=== PATIENT | female | born 1975 ===

== ENCOUNTER 2016-09-29 09:00 | Emergency (ER) | payer OTHER ==
[2016-09-29 09:09] VITALS: BMI 25.1
[2016-09-29 09:11] VITALS: RESP 18; TEMP 98.7; O2SAT 100
[2016-09-29] MEDS ORDERED: DiphenhydrAMINE 50 mg/ml Inj IVP STA (09:32)
[2016-09-29] MEDS ORDERED: Sodium Chloride 0.9% 1,000 ML IV STA (09:32)
--- NOTE | 2016-09-29 09:45 | ED PDOC ---
Arrival/HPI - General Chief Complaint: Headache Time Seen by Provider: 09/29/16 09:07 Historian: Patient, Family - History of Present Illness Narrative History of Present Illness (Text): 09/29/16 09:30 This 41 yo female with a recent Dx. lupus, who has an appointment to see [facility] next month, presents to to this ED c/o BACA, fatige, arthralgia, myalgias x 2 days. BACA is worse today. Patient has not started on Lupus medication yet. Patient denies recent travel, fever, sob, cp, abdominal pain, diplopia, dysarthria, dizziness, or abnormal gait. Time/Duration: Other (2 days) Context: Home Past Medical History - Provider Review Nursing Documentation Reviewed: Yes - Infectious Disease Hx of Infectious Diseases: None - Pulmonary Hx Respiratory Disorders: Yes Hx Asthma: Yes - Neurological Hx Neurological Disorder: No - Endocrine/Metabolic Hx Endocrine Disorders: Yes Hx Systemic Lupus Erythematosus: Yes - Psychiatric Hx Substance Use: No - Anesthesia Hx Anesthesia: No Hx Anesthesia Reactions: No Family/Social History - Physician Review Nursing Documentation Reviewed: Yes Family/Social History: No Known Family HX Smoking Status: Current Some Days Smoker Hx Alcohol Use: Yes Frequency of alcohol use: Socially Hx Substance Use: No Allergies/Home Meds Allergies/Adverse Reactions: Allergies No Known Allergies Allergy (Verified 09/29/16 09:09) Home Medications: Home Meds Medication Instructions Recorded Confirmed Albuterol HFA [Ventolin HFA 90 1 puff IH PRN PRN 09/29/16 09/29/16 mcg/actuation (8 g)] Review of Systems - Review of Systems Constitutional: Fatigue. absent: Weight Change, Fevers, Night Sweats Eyes: Normal ENT: Normal. absent: Sore Throat, Rhinorrhea Respiratory: Normal. absent: SOB, Cough, Sputum Cardiovascular: Normal. absent: Chest Pain, Palpitations Gastrointestinal: Normal. absent: Abdominal Pain, Nausea, Vomiting Genitourinary Female: Normal. absent: Dysuria, Frequency, Hematuria, Vaginal Bleeding, Vaginal Discharge Musculoskeletal: Arthralgias, Myalgias Skin: Normal. absent: Rash Neurological: Headache. absent: Dizziness, Focal Weakness, Speech Changes, Facial Droop, Disequilibrium, Seizure Endocrine: Normal Hemo/Lymphatic: Normal Psychiatric: Normal Physical Exam Vital Signs Temp Pulse Resp BP Pulse Ox 09/29/16 11:01 79 18 125/79 100 05/17/17 09:10 98.7 F 82 18 129/87 100 Temperature: Afebrile Blood Pressure: Normal Pulse: Regular Respiratory Rate: Normal Appearance: Positive for: Well-Appearing, Non-Toxic, Comfortable Pain Distress: None Mental Status: Positive for: Alert and Oriented X 3 - Systems Exam Head: Present: Atraumatic, Normocephalic Pupils: Present: PERRL Extroacular Muscles: Present: EOMI Conjunctiva: Present: Normal Mouth: Present: Moist Mucous Membranes Neck: Present: Normal Range of Motion Respiratory/Chest: Present: Clear to Auscultation, Good Air Exchange. No: Respiratory Distress, Accessory Muscle Use Cardiovascular: Present: Regular Rate and Rhythm, Normal S1, S2. No: Murmurs Abdomen: Present: Normal Bowel Sounds. No: Tenderness, Distention, Peritoneal Signs Back: Present: Normal Inspection Upper Extremity: Present: Normal Inspection. No: Cyanosis, Edema Lower Extremity: Present: Normal Inspection. No: Edema Neurological: Present: GCS=15, CN II-XII Intact, Speech Normal, Motor Func Grossly Intact, Normal Sensory Function, Normal Cerebellar Funct, Gait Normal, Memory Normal Skin: Present: Warm, Dry, Normal Color. No: Rashes Psychiatric: Present: Alert, Oriented x 3, Normal Insight, Normal Concentration Medical Decision Making ED Course and Treatment: 09/29/16 11:52 Father called her private [facility], and Neurologist to get a earlier appointment. Patient is sleeping comfortably. pain has improved. Labs were reviewed with patient and father. Patient woke up and she stated she feel better and she wishes to be discharge home soon. Re-evaluation Time: 11:54 Reassessment Condition: Re-examined, Improved - Lab Interpretations Lab Results: 09/29/16 09:49 09/29/16 09:49 Lab Results 09/29/16 10:15: Urine Color Yellow, Urine Appearance Clear, Urine pH 7.0, Ur Specific [place] 1.010, Urine Protein Negative, Urine Glucose (UA) Negative, Urine Ketones Negative, Urine Blood Negative, Urine Nitrate Negative, Urine Bilirubin Negative, Urine Urobilinogen 0.2, Ur Leukocyte Esterase Negative 09/29/16 09:49: Beta HCG, Quant < 2.39 09/29/16 09:49: Sodium 136, Potassium 4.0, Chloride 105, Carbon Dioxide 19 L, Anion Gap 16, BUN 12, Creatinine 0.8, Est GFR ( Amer) > 60, Est GFR (Non- Af Amer) > 60, Random Glucose 88, Calcium 9.7, Total Bilirubin 1.3, AST 21, ALT 22, Alkaline Phosphatase 49, Total Protein 7.6, Albumin 4.4, Globulin 3.3, Albumin/Globulin Ratio 1.3 09/29/16 09:49: WBC 5.3, RBC 4.24, Hgb 13.1, Hct 37.6, MCV 88.7, MCH 30.9, MCHC 34.8, RDW 12.6, Plt Count 227, MPV 10.6, Gran % 64.6, Lymph % (Auto) 27.7, Jones % (Auto) 6.2 H, Eos % (Auto) 1.1 L, Baso % (Auto) 0.4, Gran # 3.42, Lymph # 1.5 , Jones # 0.3, Eos # 0.1, Baso # 0.02 I have reviewed the lab results: Yes Interpretation: No clinic. lab abnormalty - Medication Orders Current Medication Orders: Discontinued Medications Diphenhydramine HCl (Benadryl) 25 mg IVP STAT STA Stop: 09/29/16 09:33 Last Admin: 09/29/16 10:11 Dose: 25 mg Comments: waited on hcg Sodium Chloride (Sodium Chloride 0.9%) 1,000 mls @ 999 mls/hr IV .Q1H1M STA Stop: 09/29/16 10:32 Last Admin: 09/29/16 09:37 Dose: 999 mls/hr Ketorolac Tromethamine (Toradol) 30 mg IVP STAT STA Stop: 09/29/16 09:33 Last Admin: 09/29/16 10:10 Dose: 30 mg Comments: waited for hcg Metoclopramide HCl (Reglan) 10 mg IVP STAT STA Stop: 09/29/16 09:33 Last Admin: 09/29/16 10:10 Dose: 10 mg Comments: waited for hcg Disposition/Present on Arrival - Present on Arrival Any Indicators Present on Arrival: No History of DVT/PE: No History of Uncontrolled Diabetes: No Urinary Catheter: No History of Decub. Ulcer: No History Surgical Site Infection Following: None - Disposition Have Diagnosis and Disposition been Completed?: Yes Diagnosis: Arthralgia, Myalgia, Headache, History of lupus Disposition: HOME/ ROUTINE Disposition Time: 11:55 Patient Plan: Discharge Patient Problems: Current Active Problems Problem Status Onset Arthralgia Acute Headache Acute History of lupus Acute Myalgia Acute Condition: GOOD Discharge Instructions (ExitCare): Autoimmune Disease (ED), Arthralgia (ED) Additional Instructions: Call [facility], and Neurologist to get a earlier appointment. Call private doctor for revaluation in 1-2 days. take medication with food as instructed. Return to emergency if symptoms worsen. Prescriptions: Famotidine [Pepcid] 40 mg PO DAILY #10 tablet Naproxen 500 mg PO BID PRN #20 tab PRN Reason: Pain, Severe (8-10) Referrals: Hu Yanez DO [Primary Care Provider] - Follow up with primary Forms: WORK NOTE
[2016-09-29 09:51] LABS: ADD MANUAL DIFF? NO
[2016-09-29 09:56] LABS: BASO # 0.02 K/mm3 (0.0-2.0); BASO % 0.4 % (0.0-3.0); EOS # 0.1 (0.0-0.7); EOS % 1.1 % (1.5-5.0); GRAN # 3.42 (1.4-6.5); GRAN % 64.6 % (50.0-68.0); HEMATOCRIT 37.6 % (36.0-48.0); LYMPH # 1.5 (1.2-3.4); LYMPH % 27.7 % (22.0-35.0); MEAN CELL VOLUME 88.7 fL (80.0-105.0); MEAN CORPUSCULAR HEMOGLOBIN 30.9 pg (25.0-35.0); MEAN CORPUSCULAR HGB CONC 34.8 g/dl (31.0-37.0); MEAN PLATELET VOLUME 10.6 fl (7.0-11.0); MONO # 0.3 (0.1-0.6); MONO % 6.2 % (1.0-6.0); PLATELET COUNT 227 10^3/uL (120.0-450.0); RED CELL DISTRIBUTION WIDTH 12.6 % (11.5-14.5); WHITE BLOOD COUNT 5.3 10^3/ul (4.5-11.0)
[2016-09-29 10:08] LABS: ALB/GLOB RATIO 1.3 (1.1-1.8); ALKALINE PHOSPHATASE 49 U/L (38-133); ALT/SGPT 22 U/L (7-56); AST/SGOT 21 U/L (15-39); BILIRUBIN,TOTAL 1.3 mg/dL (0.2-1.3); BLOOD UREA NITROGEN 12 mg/dL (7-21); CALCIUM 9.7 mg/dL (8.4-10.5); CARBON DIOXIDE 19 mmol/L (21-33); CHLORIDE 105 mmol/L (98-107); GFR AFRICAN-AMERICAN > 60; GLUCOSE,RANDOM 88 mg/dL (70-110); SODIUM 136 mmol/L (132-148); TOTAL PROTEIN 7.6 g/dL (5.8-8.3)
[2016-09-29 10:24] LABS: URINE BILIRUBIN NEGATIVE (NEGATIVE); URINE BLOOD NEGATIVE (NEGATIVE); URINE GLUCOSE (UA) NEGATIVE (NEGATIVE); URINE KETONE NEGATIVE (NEGATIVE); URINE LEUKOCYTE ESTERASE NEGATIVE Leu/uL (NEGATIVE); URINE PROTEIN NEGATIVE mg/dL (<30 mg/dL); URINE UROBILINOGEN 0.2 E.U./dL (<1 E.U./dL)
[2016-09-29 10:25] LABS: URINE APPEARANCE CLEAR (CLEAR); URINE COLOR YELLOW (YELLOW)
[2016-09-29 11:15] VITALS: BP 125/79; PULSE 79
== END 2016-09-29 12:14 | disposition home or self-care (01) ==
LOC: MERGE 09:00 → ED 09:00
DX: R51 Headache (principal); M79.1 Myalgia; M25.50 Pain in unspecified joint; M32.9 Systemic lupus erythematosus, unspecified; F17.210 Nicotine dependence, cigarettes, uncomplicated
CPT/HCPCS: 80053; 81003; 84702; 85025; 96374; 96375; 99285; J1200; J1885; J2765; J7040